=== PATIENT | female | born 1930 | race African-American/Black ===

== ENCOUNTER → 2017-02-10 | Outpatient (CLI) | payer MEDICARE, BC ==
[~2017-02-10] MED LIST: AMLO5TAB4 PO; ASPI-1035 PO; ATOR40TA70 PO; CLOP75TA33 PO; FURO40TA5 PO; ISOS5TAB4 PO; LEVO50TA8 PO; LOSA50TA20 PO; MEMA5TAB7 PO; METO25TA6 PO; TAMS0.4C31 PO
[2017-02-10 12:19] LABS: BASOPHILS % 1.2 % (0.0-2.0); EOSINOPHILS % 9.1 % (0.0-5.0); HEMATOCRIT. 43.9 % (36.0-48.0); HEMOGLOBIN. 14.5 g/dL (12.0-16.0); LYMPHOCYTES % 48.9 % (20.0-50.0); MEAN CORPUSCULAR HEMOGLOBIN 30.8 pg (28.0-32.0); MEAN CORPUSCULAR VOLUME 93.3 fL (81.0-99.0); MEAN PLATELET VOLUME 8.8 fl (7.4-10.4); MONOCYTES % 8.7 % (2.0-8.0); NEUTROPHILS % 32.1 % (40.0-76.0); PLATELET 186 x1000/uL (130-400); RED BLOOD CELL COUNT 4.71 mill/uL (4.2-5.4); RED CELL DISTRIBUTION WIDTH 15.2 % (11.6-14.6); WHITE BLOOD COUNT 6.7 x1000/uL (4.5-11.0)
[2017-02-10 12:44] LABS: T4 FREE 1.9 ng/dL (0.76-1.46); THYROID STIMULATING HORMONE 1.1 uIU/mL (0.36-3.74)
[2017-02-12 11:41] LABS: CLARITY URINE CLEAR (CLEAR); COLOR URINE YELLOW (YELLOW); GLUCOSE URINE NEGATIVE (NEGATIVE); KETONES URINE NEGATIVE (NEGATIVE); LEUKOCYTE ESTERASE URINE 2+ (NEGATIVE); NITRITE URINE POSITIVE (NEGATIVE); OCCULT BLOOD URINE TRACE (NEGATIVE); PROTEIN URINE TRACE (NEGATIVE); SPECIFIC GRAVITY URINE 1.017 (1.005-1.030); UROBILINOGEN URINE 0.2 E.U./dL (0.2-1.0)
[2017-02-12 12:08] LABS: BACTERIA URINE 2+; RBC URINE 0-2 /hpf (0-2); SQUAMOUS EPITHELIAL CELL URINE 1+ /lpf (RARE/1+)
[2017-02-12 12:09] LABS: AMORPHOUS SEDIMENT URINE 1+ /lpf; CALCIUM OXALATE CRYSTALS URINE 1+ /lpf
== END | disposition home or self-care (01) ==
LOC: LAB 11:24
PROVIDERS: ATTEND Internal Medicine
DX: Z13.1 Encounter for screening for diabetes mellitus (principal); I10 Essential (primary) hypertension
CPT/HCPCS: 36415; 80048; 80061; 81001; 82306; 83036; 84439; 84443; 85025

== ENCOUNTER → 2017-04-11 | Outpatient (CLI) | payer MEDICARE, BC ==
[2017-04-11 13:55] LABS: CLARITY URINE CLEAR (CLEAR); COLOR URINE YELLOW (YELLOW); GLUCOSE URINE NEGATIVE (NEGATIVE); KETONES URINE NEGATIVE (NEGATIVE); LEUKOCYTE ESTERASE URINE 3+ (NEGATIVE); NITRITE URINE POSITIVE (NEGATIVE); OCCULT BLOOD URINE NEGATIVE (NEGATIVE); PROTEIN URINE NEGATIVE (NEGATIVE); SPECIFIC GRAVITY URINE 1.015 (1.005-1.030); UROBILINOGEN URINE 0.2 E.U./dL (0.2-1.0)
== END | disposition home or self-care (01) ==
LOC: ER 13:09
DX: N39.0 Urinary tract infection, site not specified (principal)
CPT/HCPCS: 81001; 87077; 87086; 87186

== ENCOUNTER → 2017-04-30 | Outpatient (CLI) | payer MEDICARE, BC ==
[~2017-04-30] MED LIST changes: -ASPI-1035 PO; +ASPI-1158 PO
[2017-04-30 10:11] LABS: CLARITY URINE CLEAR (CLEAR); COLOR URINE YELLOW (YELLOW); GLUCOSE URINE NEGATIVE (NEGATIVE); KETONES URINE NEGATIVE (NEGATIVE); LEUKOCYTE ESTERASE URINE NEGATIVE (NEGATIVE); NITRITE URINE NEGATIVE (NEGATIVE); OCCULT BLOOD URINE NEGATIVE (NEGATIVE); PH URINE 5.5 (4.5-8.0); PROTEIN URINE NEGATIVE (NEGATIVE); SPECIFIC GRAVITY URINE 1.015 (1.005-1.030); UROBILINOGEN URINE 0.2 E.U./dL (0.2-1.0)
== END | disposition home or self-care (01) ==
LOC: LAB 09:46
PROVIDERS: ATTEND Internal Medicine
DX: N39.0 Urinary tract infection, site not specified (principal)
CPT/HCPCS: 81003; 87086

== ENCOUNTER → 2017-07-01 | Outpatient (CLI) | payer MEDICARE, BC ==
[2017-07-01 11:32] LABS: BASOPHILS % 1.2 % (0.0-2.0); EOSINOPHILS % 9.4 % (0.0-5.0); HEMOGLOBIN. 11.6 g/dL (12.0-16.0); LYMPHOCYTES % 43.2 % (20.0-50.0); MEAN CORPUSCULAR HEMOGLOBIN 27.5 pg (28.0-32.0); MEAN CORPUSCULAR VOLUME 85.1 fL (81.0-99.0); MEAN PLATELET VOLUME 8.4 fl (7.4-10.4); MONOCYTES % 6.5 % (2.0-8.0); NEUTROPHILS % 39.7 % (40.0-76.0); RED BLOOD CELL COUNT 4.23 mill/uL (4.2-5.4); RED CELL DISTRIBUTION WIDTH 17.6 % (11.6-14.6)
[2017-07-01 11:33] LABS: PLATELET 202 x1000/uL (130-400)
[2017-07-01 11:39] LABS: CARBON DIOXIDE 28 mEq/L (21-32); CHLORIDE 111 mEq/L (98-107); T4 FREE 1.75 ng/dL (0.76-1.46)
[2017-07-01 14:22] LABS: CLARITY URINE CLEAR (CLEAR); COLOR URINE YELLOW (YELLOW); GLUCOSE URINE NEGATIVE (NEGATIVE); KETONES URINE NEGATIVE (NEGATIVE); LEUKOCYTE ESTERASE URINE NEGATIVE (NEGATIVE); NITRITE URINE NEGATIVE (NEGATIVE); OCCULT BLOOD URINE TRACE (NEGATIVE); PH URINE 5.5 (4.5-8.0); PROTEIN URINE 1+ (NEGATIVE); SPECIFIC GRAVITY URINE 1.017 (1.005-1.030); UROBILINOGEN URINE 0.2 E.U./dL (0.2-1.0)
== END | disposition home or self-care (01) ==
LOC: LAB 10:45
PROVIDERS: ATTEND Internal Medicine
DX: Z13.1 Encounter for screening for diabetes mellitus (principal); I10 Essential (primary) hypertension; Z79.899 Other long term (current) drug therapy
CPT/HCPCS: 36415; 80053; 81001; 82306; 83036; 84439; 84443; 85025

== ENCOUNTER → 2017-11-24 | Outpatient (CLI) | payer MEDICARE, BC ==
[2017-11-24 10:36] LABS: CLARITY URINE CLEAR (CLEAR); COLOR URINE YELLOW (YELLOW); KETONES URINE NEGATIVE (NEGATIVE); LEUKOCYTE ESTERASE URINE 1+ (NEGATIVE); NITRITE URINE NEGATIVE (NEGATIVE); OCCULT BLOOD URINE NEGATIVE (NEGATIVE); PROTEIN URINE TRACE (NEGATIVE); SPECIFIC GRAVITY URINE 1.017 (1.005-1.030); UROBILINOGEN URINE 0.2 E.U./dL (0.2-1.0)
== END | disposition home or self-care (01) ==
LOC: LAB 10:17
PROVIDERS: ATTEND Internal Medicine
DX: N39.0 Urinary tract infection, site not specified (principal)
CPT/HCPCS: 81001; 87086

== ENCOUNTER → 2018-05-04 | Outpatient (CLI) | payer MEDICARE, BC ==
[2018-05-04 10:41] LABS: CLARITY URINE CLEAR (CLEAR); COLOR URINE YELLOW (YELLOW); KETONES URINE NEGATIVE (NEGATIVE); LEUKOCYTE ESTERASE URINE 1+ (NEGATIVE); NITRITE URINE NEGATIVE (NEGATIVE); OCCULT BLOOD URINE NEGATIVE (NEGATIVE); PH URINE 5.5 (4.5-8.0); PROTEIN URINE 1+ (NEGATIVE); SPECIFIC GRAVITY URINE 1.015 (1.005-1.030); UROBILINOGEN URINE 0.2 E.U./dL (0.2-1.0)
== END | disposition home or self-care (01) ==
LOC: LAB 10:13
PROVIDERS: ATTEND Internal Medicine
DX: I11.0 Hypertensive heart disease with heart failure (principal); E03.9 Hypothyroidism, unspecified; J44.9 Chronic obstructive pulmonary disease, unspecified; I50.9 Heart failure, unspecified; Z79.899 Other long term (current) drug therapy
CPT/HCPCS: 81003; 87086

== ENCOUNTER 2018-05-30 18:06 | Inpatient (IN) | payer MEDICARE, BC ==
[~2018-05-30] VITALS: Ht 162.6 cm; Wt 60.6 kg
[2018-05-30] MEDS ORDERED: SODIUM CHLORIDE 0.9% 500 ML IV ONE (18:14)
[2018-05-30] MEDS ORDERED: ATROPINE SULFATE 1MG/10ML SYR IV ONE (18:15)
[2018-05-30 19:31] LABS: BASOPHILS % 0.3 % (0.0-2.0); EOSINOPHILS % 5.1 % (0.0-5.0); HEMOGLOBIN. 11.8 g/dL (12.0-16.0); LYMPHOCYTES % 41.3 % (20.0-50.0); MEAN CORPUSCULAR HEMOGLOBIN 30.8 pg (28.0-32.0); MEAN CORPUSCULAR VOLUME 93.6 fL (81.0-99.0); MEAN PLATELET VOLUME 9.9 fl (7.4-10.4); MONOCYTES % 8.6 % (2.0-8.0); NEUTROPHILS % 44.7 % (40.0-76.0); PLATELET 154 x1000/uL (130-400); RED BLOOD CELL COUNT 3.84 mill/uL (4.2-5.4); RED CELL DISTRIBUTION WIDTH 15.3 % (11.6-14.6)
[2018-05-30 19:38] LABS: CHLORIDE 107 mEq/L (98-107)
[2018-05-30 19:40] LABS: INR 1.1; PARTIAL THROMBOPLASTIN TIME 27.3 sec (23.4-31.0); PROTHROMBIN TIME 11.6 sec (9.4-11.6)
[2018-05-30 19:47] LABS: CREATINE KINASE 104 IU/L (26-192); CREATINE KINASE MB FRACTION 0.8 ng/mL (0.5-3.6); T4 FREE 1.97 ng/dL (0.76-1.46)
[2018-05-30] MEDS ORDERED: ATROPINE SULFATE 1MG/ML VIAL IV ONE (20:15)
[2018-05-30] MEDS ORDERED: FUROSEMIDE 20MG/2ML VIAL IVP ONE (20:30)
[2018-05-30] MEDS ORDERED: DOPAMINE 400MG PREMIX 250 ML IV ONE (20:30)
[2018-05-30] MEDS ORDERED: ATROPINE SULFATE 1MG/10ML SYR ONE (20:31)
[2018-05-30] MEDS ORDERED: DOPAMINE 800MG PREMIX 250 ML IV ONE (21:30)
[2018-05-31] VITALS (99 sets, daily range): BP systolic 65–178; BP diastolic 33–110
[2018-05-31] MEDS ORDERED: NOREPINEPHRINE 32 MG in DEXT 5% WATER 468 ML IV PRN (01:30)
[2018-05-31] MEDS: PANTOPRAZOLE SODIUM 40 MG/VIAL IV SCH ×2 (02:18→10:30)
[2018-05-31] MEDS ORDERED: ONDANSETRON HCL 4MG/2ML VIAL IV PRN (05:00)
[2018-05-31] MEDS ORDERED: ACETAMINOPHEN 325MG TABLET PO PRN (05:00)
[2018-05-31 05:11] LABS: CREATINE KINASE MB FRACTION 1.4 ng/mL (0.5-3.6)
[2018-05-31] MEDS ORDERED: MIDODRINE HCL 2.5MG TABLET PO SCH (09:00)
[2018-05-31] MEDS: CLOPIDOGREL 75MG TABLET PO SCH (09:00)
[2018-05-31] MEDS: ASPIRIN 81MG EC TABLET PO SCH (09:00)
[2018-05-31] MEDS: ENOXAPARIN 30MG/0.3ML SYR SUBCUT SCH (09:00)
[2018-05-31] MEDS: DEXT 5%/0.45% NACL 1000ML 1,000 ML IV SCH (12:08)
[2018-05-31 14:26] LABS: CLARITY URINE CLEAR (CLEAR); COLOR URINE YELLOW (YELLOW); KETONES URINE NEGATIVE (NEGATIVE); LEUKOCYTE ESTERASE URINE NEGATIVE (NEGATIVE); NITRITE URINE NEGATIVE (NEGATIVE); OCCULT BLOOD URINE NEGATIVE (NEGATIVE); PROTEIN URINE 3+ (NEGATIVE); SPECIFIC GRAVITY URINE 1.012 (1.005-1.030); UROBILINOGEN URINE 0.2 E.U./dL (0.2-1.0)
[2018-05-31 16:07] LABS: CREATINE KINASE MB FRACTION 1.7 ng/mL (0.5-3.6)
[2018-05-31] MEDS: DOPAMINE 800MG PREMIX 250 ML IV PRN (21:38)
[2018-06-01] VITALS (69 sets, daily range): BP systolic 118–186; BP diastolic 30–131
[2018-06-01 05:40] LABS: BASOPHILS % 0.3 % (0.0-2.0); EOSINOPHILS % 3.7 % (0.0-5.0); HEMATOCRIT. 35.7 % (36.0-48.0); HEMOGLOBIN. 11.8 g/dL (12.0-16.0); LYMPHOCYTES % 39.9 % (20.0-50.0); MEAN CORPUSCULAR HEMOGLOBIN 30.6 pg (28.0-32.0); MEAN CORPUSCULAR VOLUME 92.4 fL (81.0-99.0); MONOCYTES % 9.8 % (2.0-8.0); NEUTROPHILS % 46.3 % (40.0-76.0); PLATELET 153 x1000/uL (130-400); RED BLOOD CELL COUNT 3.86 mill/uL (4.2-5.4); RED CELL DISTRIBUTION WIDTH 15.2 % (11.6-14.6)
[2018-06-01] MEDS: CLOPIDOGREL 75MG TABLET PO SCH (09:00)
[2018-06-01] MEDS: ASPIRIN 81MG EC TABLET PO SCH (09:00)
[2018-06-01] MEDS ORDERED: LIDOCAINE HCL 1% 20ML VIAL (Pyxis) INJ ONE (10:06)
[2018-06-01] MEDS: PANTOPRAZOLE SODIUM 40 MG/VIAL IV SCH (11:21)
[2018-06-01] MEDS: ENOXAPARIN 30MG/0.3ML SYR SUBCUT SCH (11:21)
[2018-06-01] MEDS: DEXT 5%/0.45% NACL 1000ML 1,000 ML IV SCH (15:29)
[2018-06-02] VITALS (19 sets, daily range): BP systolic 113–183; BP diastolic 39–86
[2018-06-02 06:58] LABS: BASOPHILS % 1.3 % (0.0-2.0); EOSINOPHILS % 4.7 % (0.0-5.0); HEMATOCRIT. 36.8 % (36.0-48.0); HEMOGLOBIN. 12.2 g/dL (12.0-16.0); LYMPHOCYTES % 46.4 % (20.0-50.0); MEAN CORPUSCULAR HEMOGLOBIN 30.7 pg (28.0-32.0); MEAN CORPUSCULAR VOLUME 92.6 fL (81.0-99.0); MEAN PLATELET VOLUME 10.6 fl (7.4-10.4); MONOCYTES % 7.7 % (2.0-8.0); NEUTROPHILS % 39.9 % (40.0-76.0); PLATELET 164 x1000/uL (130-400); RED BLOOD CELL COUNT 3.97 mill/uL (4.2-5.4); RED CELL DISTRIBUTION WIDTH 15.1 % (11.6-14.6)
[2018-06-02] MEDS: ENOXAPARIN 30MG/0.3ML SYR SUBCUT SCH (08:43)
[2018-06-02] MEDS: ASPIRIN 81MG EC TABLET PO SCH (08:43)
[2018-06-02] MEDS: DEXT 5%/0.45% NACL 1000ML 1,000 ML IV SCH (12:19)
[2018-06-03] VITALS (11 sets, daily range): BP systolic 94–162; BP diastolic 45–73
[2018-06-03] MEDS: DOPAMINE 800MG PREMIX 250 ML IV PRN (05:00)
[2018-06-03 07:02] LABS: BASOPHILS % 0.4 % (0.0-2.0); EOSINOPHILS % 3.9 % (0.0-5.0); HEMATOCRIT. 35.9 % (36.0-48.0); LYMPHOCYTES % 43.3 % (20.0-50.0); MEAN CORPUSCULAR HEMOGLOBIN 30.9 pg (28.0-32.0); MEAN CORPUSCULAR VOLUME 92.8 fL (81.0-99.0); MEAN PLATELET VOLUME 9.9 fl (7.4-10.4); MONOCYTES % 7.3 % (2.0-8.0); NEUTROPHILS % 45.1 % (40.0-76.0); PLATELET 166 x1000/uL (130-400); RED BLOOD CELL COUNT 3.87 mill/uL (4.2-5.4); RED CELL DISTRIBUTION WIDTH 15.1 % (11.6-14.6)
[2018-06-03] MEDS: FAMOTIDINE 20MG/2ML VIAL IV SCH (08:48)
[2018-06-03] MEDS: ASPIRIN 81MG EC TABLET PO SCH (08:48)
[2018-06-03] MEDS: ENOXAPARIN 30MG/0.3ML SYR SUBCUT SCH (08:48)
[2018-06-03] MEDS: DEXT 5%/0.45% NACL 1000ML 1,000 ML IV SCH (11:49)
[2018-06-03] MEDS ORDERED: POTASSIUM CHLORIDE 20MEQ TABLET SR PO SCH (20:00)
[2018-06-04] VITALS (11 sets, daily range): BP systolic 106–158; BP diastolic 49–87
[2018-06-04 08:07] LABS: PROTHROMBIN TIME 10.5 sec (9.4-11.6)
[2018-06-04 08:13] LABS: HEMATOCRIT 37.3 % (36.0-48.0); HEMOGLOBIN 12.4 g/dL (12.0-16.0); MEAN CORPUSCULAR HEMOGLOBIN 31.1 pg (28.0-32.0); MEAN CORPUSCULAR VOLUME 93.2 fL (81.0-99.0); PLATELET 177 x1000/uL (130-400); RED CELL DISTRIBUTION WIDTH 15.2 % (11.6-14.6)
[2018-06-04] MEDS: ASPIRIN 81MG EC TABLET PO SCH (08:31)
[2018-06-04] MEDS: FAMOTIDINE 20MG/2ML VIAL IV SCH (08:42)
[2018-06-04] MEDS: DEXT 5%/0.45% NACL 1000ML 1,000 ML IV SCH (11:45)
[2018-06-04] MEDS ORDERED: GENTAMICIN/NS IRRIGATION 500 ML IR ONE (16:29)
[2018-06-04] MEDS ORDERED: GENTAMICIN SULF 40MG/ML 2ML VIAL ONE (16:29)
[2018-06-04] MEDS ORDERED: LIDOCAINE HCL 1% 20ML VIAL (Pyxis) INJ ONE (16:39)
[2018-06-04] MEDS ORDERED: FENTANYL CITRATE/PF 50MCG/ML 2ML VIAL ONE (17:19)
[2018-06-04] MEDS ORDERED: MIDAZOLAM HCL 2 MG/2 ML VIAL ONE (17:19)
[2018-06-04] MEDS ORDERED: PROPOFOL 200MG/20ML VIAL IV ONE (17:19)
[2018-06-04] MEDS ORDERED: EPHEDRINE SULFATE 50MG/ML VIAL ONE (17:29)
[2018-06-04] MEDS ORDERED: DIPHENHYDRAMINE 50MG/ML VIAL ONE (17:43)
[2018-06-04] MEDS ORDERED: HYDROCORTISONE SOD SUCCINATE 250 MG/2 ML VIAL ONE (17:43)
[2018-06-04] MEDS ORDERED: FAMOTIDINE 20MG/2ML VIAL IV ONE (17:44)
[2018-06-04] MEDS ORDERED: VANCOMYCIN 1 G PREMIX 200 ML IV SCH (17:49)
[2018-06-04] MEDS ORDERED: IODIXANOL 320MG/ML 100 ML BOTTLE IV ONE (18:10)
[2018-06-04] MEDS ORDERED: ONDANSETRON HCL 4MG/2ML VIAL IV PRN (20:15)
[2018-06-04] MEDS ORDERED: MEPERIDINE HCL/PF 25MG/ML CPJ IV PRN (20:15)
[2018-06-04] MEDS ORDERED: HYDROMORPHONE HCL/PF 2MG/ML CPJ IV PRN (20:15)
[2018-06-04] MEDS ORDERED: LABETALOL 5MG/ML SYR 20 MG/4 ML SYRINGE IV PRN (20:15)
[2018-06-04] MEDS: IPRATROPIUM/ALBUTEROL 0.5-3(2.5)MG/3ML NEB HHN SCH (21:24)
[2018-06-05] VITALS (13 sets, daily range): BP systolic 113–158; BP diastolic 56–84
[2018-06-05] MEDS: IPRATROPIUM/ALBUTEROL 0.5-3(2.5)MG/3ML NEB HHN SCH ×4 (02:05→19:58)
[2018-06-05] MEDS: FAMOTIDINE 20MG/2ML VIAL IV SCH (08:08)
[2018-06-05] MEDS: ASPIRIN 81MG EC TABLET PO SCH (08:08)
[2018-06-05] MEDS ORDERED: FUROSEMIDE 40MG/4ML VIAL IVP NR (13:45)
[2018-06-05 14:37] LABS: BASOPHILS % 0.4 % (0.0-2.0); EOSINOPHILS % 0.7 % (0.0-5.0); HEMATOCRIT. 36.7 % (36.0-48.0); HEMOGLOBIN. 12.2 g/dL (12.0-16.0); LYMPHOCYTES % 32.2 % (20.0-50.0); MEAN CORPUSCULAR HEMOGLOBIN 30.7 pg (28.0-32.0); MEAN CORPUSCULAR VOLUME 92.3 fL (81.0-99.0); MEAN PLATELET VOLUME 8.9 fl (7.4-10.4); MONOCYTES % 8.3 % (2.0-8.0); NEUTROPHILS % 58.4 % (40.0-76.0); PLATELET 178 x1000/uL (130-400); RED BLOOD CELL COUNT 3.98 mill/uL (4.2-5.4); RED CELL DISTRIBUTION WIDTH 15.9 % (11.6-14.6)
[2018-06-05] MEDS ORDERED: POTASSIUM CHLORIDE 20MEQ TABLET SR PO SCH (15:15)
[2018-06-05] MEDS: POTASSIUM CHLORIDE 20MEQ TABLET SR PO SCH (15:30)
[2018-06-05] MEDS ORDERED: PIPERACILLIN/TAZOBACTAM 2.25 G in DEXTROSE 5% WATER 50 ML IV SCH (22:00)
[2018-06-06] VITALS (12 sets, daily range): BP systolic 97–146; BP diastolic 47–97
[2018-06-06] MEDS: IPRATROPIUM/ALBUTEROL 0.5-3(2.5)MG/3ML NEB HHN SCH ×4 (02:55→21:17)
[2018-06-06] MEDS: ASPIRIN 81MG EC TABLET PO SCH (08:25)
[2018-06-06] MEDS: POTASSIUM CHLORIDE 20MEQ TABLET SR PO SCH (08:25)
[2018-06-06] MEDS: FAMOTIDINE 20MG/2ML VIAL IV SCH (08:25)
[2018-06-06] MEDS: LEVOFLOXACIN 250MG PREMIX 50 ML IV SCH (14:45)
[2018-06-07] VITALS (14 sets, daily range): BP systolic 85–170; BP diastolic 41–121
[2018-06-07] MEDS: IPRATROPIUM/ALBUTEROL 0.5-3(2.5)MG/3ML NEB HHN SCH ×5 (01:00→20:05)
[2018-06-07 06:31] LABS: BASOPHILS % 1.1 % (0.0-2.0); HEMOGLOBIN. 10.8 g/dL (12.0-16.0); LYMPHOCYTES % 44.2 % (20.0-50.0); MEAN CORPUSCULAR HEMOGLOBIN 31.1 pg (28.0-32.0); MEAN CORPUSCULAR VOLUME 92.3 fL (81.0-99.0); MEAN PLATELET VOLUME 8.9 fl (7.4-10.4); NEUTROPHILS % 41.7 % (40.0-76.0); PLATELET 175 x1000/uL (130-400); RED BLOOD CELL COUNT 3.47 mill/uL (4.2-5.4); RED CELL DISTRIBUTION WIDTH 15.4 % (11.6-14.6)
[2018-06-07 06:53] LABS: CHLORIDE 113 mEq/L (98-107)
[2018-06-07] MEDS: POTASSIUM CHLORIDE 20MEQ TABLET SR PO SCH (08:20)
[2018-06-07] MEDS: ASPIRIN 81MG EC TABLET PO SCH (08:21)
[2018-06-07] MEDS: FAMOTIDINE 20MG/2ML VIAL IV SCH (08:21)
[2018-06-07] MEDS: ENOXAPARIN 30MG/0.3ML SYR SUBCUT SCH (14:47)
[2018-06-07] MEDS ORDERED: GUAIFENESIN/CODEINE 100-10MG/5ML UDC PO NR (15:10)
[2018-06-07] MEDS: DEXT 5%/0.45% NACL 1000ML 1,000 ML IV SCH (15:24)
[2018-06-07] MEDS: LEVOFLOXACIN 250MG PREMIX 50 ML IV SCH (15:24)
[2018-06-07] MEDS ORDERED: GUAIFENESIN/CODEINE 100-10MG/5ML UDC PO PRN (18:00)
[2018-06-08] VITALS (16 sets, daily range): BP systolic 119–194; BP diastolic 66–110
[2018-06-08] MEDS: IPRATROPIUM/ALBUTEROL 0.5-3(2.5)MG/3ML NEB HHN SCH ×5 (01:08→20:36)
[2018-06-08] MEDS: HYDRALAZINE 20MG/ML VIAL IV PRN ×2 (05:20→20:28)
[2018-06-08 06:50] LABS: BASOPHILS % 0.5 % (0.0-2.0); EOSINOPHILS % 2.8 % (0.0-5.0); HEMATOCRIT. 32.7 % (36.0-48.0); HEMOGLOBIN. 10.7 g/dL (12.0-16.0); LYMPHOCYTES % 34.5 % (20.0-50.0); MEAN CORPUSCULAR HEMOGLOBIN 30.6 pg (28.0-32.0); MEAN CORPUSCULAR VOLUME 93.1 fL (81.0-99.0); MEAN PLATELET VOLUME 8.9 fl (7.4-10.4); MONOCYTES % 5.9 % (2.0-8.0); NEUTROPHILS % 56.3 % (40.0-76.0); PLATELET 181 x1000/uL (130-400); RED BLOOD CELL COUNT 3.51 mill/uL (4.2-5.4); RED CELL DISTRIBUTION WIDTH 15.6 % (11.6-14.6)
[2018-06-08] MEDS: DEXT 5%/0.45% NACL 1000ML 1,000 ML IV SCH (07:40)
[2018-06-08] MEDS: ENOXAPARIN 30MG/0.3ML SYR SUBCUT SCH (09:00)
[2018-06-08] MEDS: FAMOTIDINE 20MG/2ML VIAL IV SCH (09:10)
[2018-06-08] MEDS: ASPIRIN 81MG EC TABLET PO SCH (09:10)
[2018-06-08] MEDS: POTASSIUM CHLORIDE 20MEQ TABLET SR PO SCH (09:10)
[2018-06-08] MEDS: METHYLPREDNISOLONE SOD SUCC 40 MG/ML VIAL IV SCH ×2 (12:43→21:24)
[2018-06-08 14:29] LABS: BG BASE EXCESS -1.8 mmol/L (-2.0-2.0); BG CARBOXYHEMOGLOBIN 0.8 % (0.5-1.5); BG DEOXYHEMOGLOBIN 8.3 % (0.0-5.0); BG HCO3 ACT 20.4 mmol/L (22.0-26.0); BG METHEMOGLOBIN 0.3 % (0.0-1.5); BG OXYGEN SATURATION 91.6 % (92.0-98.5); BG OXYHEMOGLOBIN 90.6 % (94.0-97.0); BG PCO2 27.2 mmHg (35.0-45.0); BG PH 7.492 (7.350-7.450); BG PO2 56.1 mmHg (75.0-100.0); BG SAMPLE SITE RIGHT RADIAL; BG TOTAL HEMOGLOBIN 12.1 g/dL (12.0-18.0); BG VENT MODE ROOM AIR
[2018-06-08] MEDS ORDERED: SODIUM CHLORIDE 0.9% 250 ML IV SCH (14:45)
[2018-06-09] VITALS (12 sets, daily range): BP systolic 110–157; BP diastolic 51–97
[2018-06-09] MEDS: IPRATROPIUM/ALBUTEROL 0.5-3(2.5)MG/3ML NEB HHN SCH ×6 (01:08→20:13)
[2018-06-09] MEDS: DEXT 5%/0.45% NACL 1000ML 1,000 ML IV SCH ×2 (01:19→17:01)
[2018-06-09] MEDS: METHYLPREDNISOLONE SOD SUCC 40 MG/ML VIAL IV SCH ×2 (05:51→14:25)
[2018-06-09 07:42] LABS: BASOPHILS % 0.1 % (0.0-2.0); HEMATOCRIT. 31.6 % (36.0-48.0); HEMOGLOBIN. 10.5 g/dL (12.0-16.0); LYMPHOCYTES % 36.2 % (20.0-50.0); MEAN CORPUSCULAR HEMOGLOBIN 30.5 pg (28.0-32.0); MEAN PLATELET VOLUME 8.9 fl (7.4-10.4); MONOCYTES % 3.1 % (2.0-8.0); NEUTROPHILS % 60.6 % (40.0-76.0); RED BLOOD CELL COUNT 3.44 mill/uL (4.2-5.4); RED CELL DISTRIBUTION WIDTH 15.5 % (11.6-14.6)
[2018-06-09 07:48] LABS: PLATELET 187 x1000/uL (130-400)
[2018-06-09] MEDS: ASPIRIN 81MG EC TABLET PO SCH (09:21)
[2018-06-09] MEDS: FAMOTIDINE 20MG/2ML VIAL IV SCH (09:21)
[2018-06-09] MEDS: POTASSIUM CHLORIDE 20MEQ TABLET SR PO SCH (09:21)
[2018-06-09] MEDS: ENOXAPARIN 30MG/0.3ML SYR SUBCUT SCH (09:25)
[2018-06-09] MEDS ORDERED: SODIUM POLYSTYRENE SULFONATE 15 G/60 ML BOT PR NR (10:15)
[2018-06-09] MEDS: LEVOFLOXACIN 250MG PREMIX 50 ML IV SCH (11:02)
[2018-06-09] MEDS ORDERED: SODIUM CHLORIDE 0.9% 250 ML IV ONE (14:45)
[2018-06-10] VITALS (12 sets, daily range): BP systolic 132–156; BP diastolic 52–94
[2018-06-10] MEDS: IPRATROPIUM/ALBUTEROL 0.5-3(2.5)MG/3ML NEB HHN SCH ×6 (00:11→20:58)
[2018-06-10] MEDS ORDERED: FUROSEMIDE 40MG/4ML VIAL IVP SCH ×2 (04:45→10:00)
[2018-06-10 07:48] LABS: HEMATOCRIT. 31.7 % (36.0-48.0); HEMOGLOBIN. 10.4 g/dL (12.0-16.0); LYMPHOCYTES % 41.6 % (20.0-50.0); MEAN CORPUSCULAR HEMOGLOBIN 30.4 pg (28.0-32.0); MEAN CORPUSCULAR VOLUME 92.3 fL (81.0-99.0); MEAN PLATELET VOLUME 9.7 fl (7.4-10.4); MONOCYTES % 4.5 % (2.0-8.0); NEUTROPHILS % 53.9 % (40.0-76.0); PLATELET 218 x1000/uL (130-400); RED BLOOD CELL COUNT 3.43 mill/uL (4.2-5.4)
[2018-06-10] MEDS: FAMOTIDINE 20MG/2ML VIAL IV SCH (08:39)
[2018-06-10] MEDS: ASPIRIN 81MG EC TABLET PO SCH (08:39)
[2018-06-10] MEDS: METHYLPREDNISOLONE SOD SUCC 40 MG/ML VIAL IV SCH ×2 (08:40→21:00)
[2018-06-10] MEDS: ENOXAPARIN 30MG/0.3ML SYR SUBCUT SCH (08:40)
[2018-06-10 09:06] LABS: BG BASE EXCESS -6.1 mmol/L (-2.0-2.0); BG CARBOXYHEMOGLOBIN 0.1 % (0.5-1.5); BG DEOXYHEMOGLOBIN 17.4 % (0.0-5.0); BG FRACTION INSPIRED OXYGEN 21; BG HCO3 ACT 16.2 mmol/L (22.0-26.0); BG METHEMOGLOBIN 0.7 % (0.0-1.5); BG OXYGEN SATURATION 82.5 % (92.0-98.5); BG OXYHEMOGLOBIN 81.8 % (94.0-97.0); BG PCO2 23.6 mmHg (35.0-45.0); BG PH 7.455 (7.350-7.450); BG PO2 45.4 mmHg (75.0-100.0); BG SAMPLE SITE RIGHT BRACHIAL; BG TOTAL HEMOGLOBIN 11.7 g/dL (12.0-18.0); BG VENT MODE ROOM AIR
[2018-06-10] MEDS: DEXT 5%/0.45% NACL 1000ML 1,000 ML IV SCH (18:48)
[2018-06-11] VITALS (9 sets, daily range): BP systolic 125–162; BP diastolic 73–111
[2018-06-11] MEDS: IPRATROPIUM/ALBUTEROL 0.5-3(2.5)MG/3ML NEB HHN SCH ×6 (00:14→20:25)
[2018-06-11 06:56] LABS: BASOPHILS % 0.2 % (0.0-2.0); HEMATOCRIT. 28.9 % (36.0-48.0); HEMOGLOBIN. 9.6 g/dL (12.0-16.0); LYMPHOCYTES % 45.5 % (20.0-50.0); MEAN CORPUSCULAR HEMOGLOBIN 30.8 pg (28.0-32.0); MEAN CORPUSCULAR VOLUME 92.9 fL (81.0-99.0); MEAN PLATELET VOLUME 9.5 fl (7.4-10.4); MONOCYTES % 2.5 % (2.0-8.0); NEUTROPHILS % 51.8 % (40.0-76.0); PLATELET 183 x1000/uL (130-400); RED BLOOD CELL COUNT 3.11 mill/uL (4.2-5.4); RED CELL DISTRIBUTION WIDTH 15.9 % (11.6-14.6)
[2018-06-11] MEDS: ENOXAPARIN 30MG/0.3ML SYR SUBCUT SCH (09:28)
[2018-06-11] MEDS: ASPIRIN 81MG EC TABLET PO SCH (09:28)
[2018-06-11] MEDS: FAMOTIDINE 20MG/2ML VIAL IV SCH (09:28)
[2018-06-11] MEDS: METHYLPREDNISOLONE SOD SUCC 40 MG/ML VIAL IV SCH (09:28)
[2018-06-11] MEDS: DEXTROSE 5% WATER 1,000 ML IV SCH (11:21)
[2018-06-11] MEDS: LEVOFLOXACIN 250MG PREMIX 50 ML IV SCH (11:23)
[2018-06-11] MEDS: MEGESTROL ACETATE 400 MG/10 ML UDC PO SCH (15:45)
[2018-06-12] VITALS (7 sets, daily range): BP systolic 129–173; BP diastolic 74–101
[2018-06-12] MEDS: IPRATROPIUM/ALBUTEROL 0.5-3(2.5)MG/3ML NEB HHN SCH ×6 (00:18→21:40)
[2018-06-12 06:08] LABS: HEMATOCRIT 28.5 % (36.0-48.0); HEMOGLOBIN 9.4 g/dL (12.0-16.0); MEAN CORPUSCULAR HEMOGLOBIN 30.3 pg (28.0-32.0); MEAN CORPUSCULAR VOLUME 91.9 fL (81.0-99.0); PLATELET 209 x1000/uL (130-400); RED CELL DISTRIBUTION WIDTH 15.6 % (11.6-14.6)
[2018-06-12] MEDS: FAMOTIDINE 20MG/2ML VIAL IV SCH (09:42)
[2018-06-12] MEDS: ASPIRIN 81MG EC TABLET PO SCH (09:46)
[2018-06-12] MEDS: ENOXAPARIN 30MG/0.3ML SYR SUBCUT SCH (09:46)
[2018-06-12] MEDS: MEGESTROL ACETATE 400 MG/10 ML UDC PO SCH (09:46)
[2018-06-12] MEDS: METHYLPREDNISOLONE SOD SUCC 40 MG/ML VIAL IV SCH (09:58)
[2018-06-12] MEDS: DEXTROSE 5% WATER 1,000 ML IV SCH (10:45)
[2018-06-12] MEDS: HYDRALAZINE 20MG/ML VIAL IV PRN (21:16)
[2018-06-13] VITALS (7 sets, daily range): BP systolic 109–187; BP diastolic 67–111
[2018-06-13] MEDS: IPRATROPIUM/ALBUTEROL 0.5-3(2.5)MG/3ML NEB HHN SCH ×5 (02:03→20:48)
[2018-06-13 05:58] LABS: HEMATOCRIT 30.2 % (36.0-48.0); MEAN CORPUSCULAR HEMOGLOBIN 30.8 pg (28.0-32.0); MEAN CORPUSCULAR VOLUME 92.9 fL (81.0-99.0); PLATELET 224 x1000/uL (130-400); RED BLOOD CELL COUNT 3.26 mill/uL (4.2-5.4); RED CELL DISTRIBUTION WIDTH 15.5 % (11.6-14.6)
[2018-06-13] MEDS ORDERED: POTASSIUM CHLORIDE 20MEQ/PACKET PO NR (08:30)
[2018-06-13] MEDS: METHYLPREDNISOLONE SOD SUCC 40 MG/ML VIAL IV SCH (08:40)
[2018-06-13] MEDS: FAMOTIDINE 20MG/2ML VIAL IV SCH (08:40)
[2018-06-13] MEDS: HYDRALAZINE 20MG/ML VIAL IV PRN (08:42)
[2018-06-13] MEDS: MEGESTROL ACETATE 400 MG/10 ML UDC PO SCH (12:35)
[2018-06-13] MEDS: ASPIRIN 81MG EC TABLET PO SCH (12:35)
[2018-06-13] MEDS: ENOXAPARIN 30MG/0.3ML SYR SUBCUT SCH (12:35)
[2018-06-13] MEDS: DEXTROSE 5% WATER 1,000 ML IV SCH (12:36)
[2018-06-13] MEDS: AMLODIPINE 5MG TABLET PO SCH ×2 (12:52→21:00)
[2018-06-13 13:09] LABS: BG BASE EXCESS -3.4 mmol/L (-2.0-2.0); BG CARBOXYHEMOGLOBIN 0.7 % (0.5-1.5); BG DEOXYHEMOGLOBIN 6.3 % (0.0-5.0); BG FRACTION INSPIRED OXYGEN 28; BG HCO3 ACT 19.5 mmol/L (22.0-26.0); BG METHEMOGLOBIN 0.2 % (0.0-1.5); BG OXYGEN SATURATION 93.6 % (92.0-98.5); BG OXYHEMOGLOBIN 92.8 % (94.0-97.0); BG PCO2 28.4 mmHg (35.0-45.0); BG PH 7.454 (7.350-7.450); BG PO2 68.5 mmHg (75.0-100.0); BG SAMPLE SITE RIGHT BRACHIAL; BG TOTAL HEMOGLOBIN 11.3 g/dL (12.0-18.0); BG VENT MODE NASAL CANNULA
[2018-06-13] MEDS: LEVOFLOXACIN 250MG PREMIX 50 ML IV SCH (13:12)
[2018-06-13] MEDS: CLONIDINE 0.1MG TABLET PO SCH ×2 (16:19→21:53)
[2018-06-13] MEDS: METRONIDAZOLE 500 MG PREMIX 100 ML IV SCH (16:45)
[2018-06-13] MEDS: AZTREONAM 1 G in DEXTROSE 5% WATER 50 ML IV SCH (19:38)
[2018-06-14] VITALS: BP 125/69
[2018-06-14] MEDS: IPRATROPIUM/ALBUTEROL 0.5-3(2.5)MG/3ML NEB HHN SCH ×6 (01:10→20:30)
[2018-06-14] MEDS: METRONIDAZOLE 500 MG PREMIX 100 ML IV SCH ×3 (01:39→15:20)
[2018-06-14 04:00] VITALS: BP 120/60
[2018-06-14] MEDS: AZTREONAM 1 G in DEXTROSE 5% WATER 50 ML IV SCH ×2 (05:39→16:56)
[2018-06-14] MEDS: CLONIDINE 0.1MG TABLET PO SCH ×3 (05:46→22:02)
[2018-06-14 08:00] VITALS: BP 171/79
[2018-06-14] MEDS: AMLODIPINE 5MG TABLET PO SCH ×2 (08:30→22:03)
[2018-06-14] MEDS: MEGESTROL ACETATE 400 MG/10 ML UDC PO SCH (08:30)
[2018-06-14] MEDS: ASPIRIN 81MG EC TABLET PO SCH (08:30)
[2018-06-14] MEDS: FAMOTIDINE 20MG/2ML VIAL IV SCH (08:30)
[2018-06-14] MEDS: METHYLPREDNISOLONE SOD SUCC 40 MG/ML VIAL IV SCH (08:30)
[2018-06-14] MEDS: ENOXAPARIN 30MG/0.3ML SYR SUBCUT SCH (08:31)
[2018-06-14 09:18] LABS: HEMATOCRIT 29.6 % (36.0-48.0); HEMOGLOBIN 9.8 g/dL (12.0-16.0); MEAN CORPUSCULAR HEMOGLOBIN 30.4 pg (28.0-32.0); MEAN CORPUSCULAR VOLUME 92.1 fL (81.0-99.0); PLATELET 210 x1000/uL (130-400); RED BLOOD CELL COUNT 3.21 mill/uL (4.2-5.4); RED CELL DISTRIBUTION WIDTH 15.7 % (11.6-14.6)
[2018-06-14 11:59] VITALS: BP 157/74
[2018-06-14] MEDS ORDERED: FUROSEMIDE 20MG TABLET PO NR (12:30)
[2018-06-14] MEDS ORDERED: CLONIDINE 0.1MG TABLET PO PRN (13:50)
[2018-06-14 16:00] VITALS: BP 134/69
[2018-06-14 20:00] VITALS: BP 121/63
[2018-06-15] VITALS (7 sets, daily range): BP systolic 93–144; BP diastolic 54–77
[2018-06-15] MEDS: IPRATROPIUM/ALBUTEROL 0.5-3(2.5)MG/3ML NEB HHN SCH ×6 (00:10→21:00)
[2018-06-15] MEDS: METRONIDAZOLE 500 MG PREMIX 100 ML IV SCH ×3 (00:53→18:12)
[2018-06-15] MEDS: AZTREONAM 1 G in DEXTROSE 5% WATER 50 ML IV SCH ×2 (05:42→19:42)
[2018-06-15] MEDS: CLONIDINE 0.1MG TABLET PO SCH ×3 (05:42→20:39)
[2018-06-15 09:27] LABS: HEMATOCRIT 29.1 % (36.0-48.0); HEMOGLOBIN 9.7 g/dL (12.0-16.0); MEAN CORPUSCULAR HEMOGLOBIN 30.9 pg (28.0-32.0); MEAN CORPUSCULAR VOLUME 93.1 fL (81.0-99.0); PLATELET 194 x1000/uL (130-400); RED BLOOD CELL COUNT 3.13 mill/uL (4.2-5.4); RED CELL DISTRIBUTION WIDTH 15.8 % (11.6-14.6)
[2018-06-15] MEDS: METHYLPREDNISOLONE SOD SUCC 40 MG/ML VIAL IV SCH (09:56)
[2018-06-15] MEDS: FAMOTIDINE 20MG/2ML VIAL IV SCH (09:57)
[2018-06-15] MEDS: MEGESTROL ACETATE 400 MG/10 ML UDC PO SCH (09:57)
[2018-06-15] MEDS: ENOXAPARIN 30MG/0.3ML SYR SUBCUT SCH (09:58)
[2018-06-15] MEDS: AMLODIPINE 5MG TABLET PO SCH ×2 (09:58→20:39)
[2018-06-15] MEDS: ASPIRIN 81MG EC TABLET PO SCH (09:58)
[2018-06-16] VITALS: BP 120/70
[2018-06-16] MEDS: METRONIDAZOLE 500 MG PREMIX 100 ML IV SCH (01:06)
[2018-06-16] MEDS: IPRATROPIUM/ALBUTEROL 0.5-3(2.5)MG/3ML NEB HHN SCH ×4 (02:16→11:14)
[2018-06-16 04:00] VITALS: BP 114/64
[2018-06-16] MEDS: AZTREONAM 1 G in DEXTROSE 5% WATER 50 ML IV SCH (05:21)
[2018-06-16] MEDS: METRONIDAZOLE 500MG TABLET PO SCH ×2 (05:30→13:58)
[2018-06-16] MEDS: CLONIDINE 0.1MG TABLET PO SCH ×2 (05:30→13:59)
[2018-06-16 07:23] LABS: HEMATOCRIT 30.6 % (36.0-48.0); HEMOGLOBIN 10.1 g/dL (12.0-16.0); MEAN CORPUSCULAR HEMOGLOBIN 30.2 pg (28.0-32.0); MEAN CORPUSCULAR VOLUME 91.9 fL (81.0-99.0); PLATELET 251 x1000/uL (130-400); RED BLOOD CELL COUNT 3.33 mill/uL (4.2-5.4); RED CELL DISTRIBUTION WIDTH 16.2 % (11.6-14.6)
[2018-06-16 07:25] VITALS: BP 124/94
[2018-06-16] MEDS: ASPIRIN 81MG EC TABLET PO SCH (09:15)
[2018-06-16] MEDS: AMLODIPINE 5MG TABLET PO SCH (09:15)
[2018-06-16] MEDS: FAMOTIDINE 20MG/2ML VIAL IV SCH (09:16)
[2018-06-16] MEDS: ENOXAPARIN 30MG/0.3ML SYR SUBCUT SCH (09:16)
[2018-06-16] MEDS: MEGESTROL ACETATE 400 MG/10 ML UDC PO SCH (09:16)
[2018-06-16 11:49] VITALS: BP 161/65
[2018-06-16] MEDS ORDERED: POTASSIUM CHLORIDE 20MEQ TABLET SR PO NR (13:45)
[2018-06-16 14:22] VITALS: BP 104/64
== END 2018-06-16 15:10 | DRG 242 ==
LOC: ER 18:16 → MICUSO 20:20 → EDBEDREQSVC 20:29 → EDBEDREQTM 20:29 → EDBEDREQ 20:29 → ENRESERV 21:56 → CANRESERV 21:56 → ENRESERV 22:12 → EDBEDREQ 23:41 → CVICU 05-31 17:08 → 3WST 06-01 18:10 → 6WST 06-11 13:34
PROVIDERS: ADMIT Internal Medicine; ATTEND Internal Medicine
PROC: 05H533Z Insertion of Infusion Device into Right Subclavian Vein, Percutaneous Approach (ICD-10-PCS; 2018-06-01)
PROC: B546ZZA Ultrasonography of Right Subclavian Vein, Guidance (ICD-10-PCS; 2018-06-01)
PROC: 0JH606Z Insertion of Pacemaker, Dual Chamber into Chest Subcutaneous Tissue and Fascia, Open Approach (ICD-10-PCS; 2018-06-04)
PROC: 02HK3JZ Insertion of Pacemaker Lead into Right Ventricle, Percutaneous Approach (ICD-10-PCS; 2018-06-04)
PROC: B516YZA Fluoroscopy of Right Subclavian Vein using Other Contrast, Guidance (ICD-10-PCS; 2018-06-04)
PROC: 02H63JZ Insertion of Pacemaker Lead into Right Atrium, Percutaneous Approach (ICD-10-PCS; principal; 2018-06-04 16:30)
DX: I44.2 Atrioventricular block, complete (principal); N17.0 Acute kidney failure with tubular necrosis; I50.33 Acute on chronic diastolic (congestive) heart failure; A41.9 Sepsis, unspecified organism; J69.0 Pneumonitis due to inhalation of food and vomit; I13.0 Hypertensive heart and chronic kidney disease with heart failure and stage 1 through stage 4 chronic kidney disease, or unspecified chronic kidney disease; E87.0 Hyperosmolality and hypernatremia; E46 Unspecified protein-calorie malnutrition; I69.354 Hemiplegia and hemiparesis following cerebral infarction affecting left non-dominant side; Z66 Do not resuscitate; I49.5 Sick sinus syndrome; F03.90 Unspecified dementia, unspecified severity, without behavioral disturbance, psychotic disturbance, mood disturbance, and anxiety; I71.4 Abdominal aortic aneurysm, without rupture; I48.0 Paroxysmal atrial fibrillation; E87.5 Hyperkalemia; N18.3 Chronic kidney disease, stage 3 (moderate); E03.9 Hypothyroidism, unspecified; E78.5 Hyperlipidemia, unspecified; F01.50 Vascular dementia, unspecified severity, without behavioral disturbance, psychotic disturbance, mood disturbance, and anxiety; R62.7 Adult failure to thrive; I25.10 Atherosclerotic heart disease of native coronary artery without angina pectoris; D63.8 Anemia in other chronic diseases classified elsewhere; K74.60 Unspecified cirrhosis of liver; I07.1 Rheumatic tricuspid insufficiency; R13.10 Dysphagia, unspecified; T38.0X5A Adverse effect of glucocorticoids and synthetic analogues, initial encounter; Z88.0 Allergy status to penicillin; Z87.440 Personal history of urinary (tract) infections; Z91.013 Allergy to seafood; Z91.048 Other nonmedicinal substance allergy status; Z79.899 Other long term (current) drug therapy; Z79.82 Long term (current) use of aspirin; Z79.02 Long term (current) use of antithrombotics/antiplatelets; Z86.718 Personal history of other venous thrombosis and embolism; Z68.22 Body mass index [BMI] 22.0-22.9, adult; Y92.89 Other specified places as the place of occurrence of the external cause
CPT/HCPCS: 33208; 36415; 36556; 36569; 36600; 70450; 71045; 74018; 75820; 76770; 76775; 76937; 80048; 80053; 81003; 82375; 82550; 82553; 82805; 83605; 83690; 83735; 83880; 84145; 84439; 84443; 84481; 84484; 85025; 85027; 85610; 85730; 87040; 87086; 92610; 93005; 93306; 93970; 94640; 96374; 96375; 97110; 97163; 97166; 97530; 99291; A4565; A6261; C1725; C1769; C1785; C1892; C1893; C1898; C9113; J0360; J0461; J1200; J1265; J1580; J1650; J1720; J1940; J1956; J2250; J2704; J2920; J3010; J3370; J3490; J7040; J7050; J7060; J7070; J7620; L3670; Q9967; A4315